=== PATIENT | female | born 1960 | race Two or more races ===

== ENCOUNTER 2017-12-10 20:58 | Emergency (ER) | payer BC ==
--- NOTE | 2017-12-10 21:31 | EDM.PDOC ---
ED HPI GENERAL MEDICAL PROBLEM - General Chief Complaint: Skin Complaint Stated Complaint: REBECCA REATION Time Seen by Provider: 12/10/17 21:26 Source of Information: Reports: Patient History Limitations: Reports: No Limitations - History of Present Illness INITIAL COMMENTS - FREE TEXT/NARRATIVE: HISTORY AND PHYSICAL: History of present illness: Patient is a 57-year-old female here with a rash in her hands 2 months. Reports gotten worse recently and is bothering her and keeping her up at night. She's tried [id number] lotions and creams without any relief. She denies any fevers or chills, nausea, vomiting, chest pain, shortness of breath, headache, abdominal pain. Patient is visiting from [place] and will be returning to [place] next week. She states no one else in her house has a rash. Review of systems: As per history of present illness and below otherwise all systems reviewed and negative. Past medical history: As per history of present illness and as reviewed below otherwise noncontributory. Surgical history: As per history of present illness and as reviewed below otherwise noncontributory. Social history: No reported history of drug or alcohol abuse. Family history: As per history of present illness and as reviewed below otherwise noncontributory. Physical exam: General: Patient sitting comfortably in no acute distress HEENT: Atraumatic, normocephalic, pupils reactive, negative for conjunctival pallor or scleral icterus Lungs: Clear to auscultation, breath sounds equal bilaterally, chest nontender. Heart: S1S2, regular, negative for clicks, rubs, or JVD. Abdomen: Soft, nondistended, nontender. Negative for masses or hepatosplenomegaly. Negative for costovertebral tenderness. Skin: the skin on the hands are dry and cracked and there are small linear bumps in between the fingers. Extremities: Atraumatic, negative for cords or calf pain. Neurovascular unremarkable. Neuro: Awake, alert, oriented. Cranial nerves II through XII unremarkable. Cerebellum unremarkable. Motor and sensory unremarkable throughout. Exam nonfocal. Notes: Diagnostics: [] Therapeutics: [] Impression: Scabies Plan: 1. Use topical cream as directed for scabies, may take benadryl as needed for itching 2. Follow up with primary care provider 3. Return to ED as needed as discussed Definitive disposition and diagnosis as appropriate pending reevaluation and review of above. - Related Data Allergies Allergy/AdvReac Type Severity Reaction Status Date / Time No Known Allergies Allergy Verified 12/10/17 21:01 Home Meds: Home Meds Permethrin 60 gm TP ONETIME #1 cream..g. 12/10/17 [Rx] ED ROS GENERAL - Review of Systems Review Of Systems: ROS reveals no pertinent complaints other than HPI. ED EXAM, SKIN/RASH Exam: See Below (see dictation) Departure - Departure Time of Disposition: 21:29 Disposition: Home, Self-Care 01 Condition: Good Clinical Impression: Scabies - Discharge Information Prescriptions: Permethrin 60 gm TP ONETIME #1 cream..g. Referrals: PCP,None [Primary Care Provider] - Additional Instructions: The following information is given to patients seen in the emergency department who are being discharged to home. This information is to outline your options for follow-up care. We provide all patients seen in our emergency department with a follow-up referral. The need for follow-up, as well as the timing and circumstances, are variable depending upon the specifics of your emergency department visit. If you don't have a primary care physician on staff, we will provide you with a referral. We always advise you to contact your personal physician following an emergency department visit to inform them of the circumstance of the visit and for follow-up with them and/or the need for any referrals to a consulting specialist. The emergency department will also refer you to a specialist when appropriate. This referral assures that you have the opportunity for follow-up care with a specialist. All of these measure are taken in an effort to provide you with optimal care, which includes your follow-up. Under all circumstances we always encourage you to contact your private physician who remains a resource for coordinating your care. When calling for follow-up care, please make the office aware that this follow-up is from your recent emergency room visit. If for any reason you are refused follow-up, please contact the [facility] at and asked to speak to the emergency department charge nurse. [facility] [address] [place] [id number] [facility] [address] [place] [address] 1. Use topical cream as directed for scabies, may take benadryl as needed for itching 2. Follow up with primary care provider 3. Return to ED as needed as discussed
== END 2017-12-10 22:30 | disposition home or self-care (01) ==
LOC: MW.ED 20:58
DX: B86 Scabies (principal)
CPT/HCPCS: 99283

== ENCOUNTER 2019-07-29 00:01 | Emergency (ER) | payer SELFPAY ==
[2019-07-29] MEDS ORDERED: Aspirin 325 MG Tab PO ONE (00:21)
--- NOTE | 2019-07-29 00:33 | EDM.PDOC ---
ED [facility] GENERAL MEDICAL PROBLEM - General Chief Complaint: General Stated Complaint: CHEST PAIN Time Seen by Provider: 07/29/19 00:31 Source of Information: Reports: Patient History Limitations: Reports: No Limitations - History of Present Illness INITIAL COMMENTS - FREE TEXT/NARRATIVE: Patient is a 58-year-old female with past medical history of anxiety and smoking presenting with a chief complaint of chest pressure. Patient states the chest pressure started earlier this evening several hours prior to arrival. Patient she feels substernal without radiation. Patient feels anxious and short of breath. Patient took a Valium and had some relief of her symptoms. Patient denies any diaphoresis, nausea, vomiting. Patient thinks that this may be related to a lot of stress ongoing in her life as her recently had a traumatic brain injury and is in the hospital still. Patient has no recent travels outside of the replaced by [facility] and no sick contacts. Patient denies any fevers, cough, sore throat. Pmhx: Anxiety Pshx: None Family Hx: noncontributory Smoking history? Yes Etoh use? none Drug use? none In addition to that documented in the HPI above, the additional ROS was obtained : Constitutional: Denies fevers or chills Eyes: Denies vision changes ENMT: Denies sore throat CV: Per HPI Resp: Per HPI GI: Denies vomiting or diarrhea : Denies painful urination MSK: Denies recent trauma Skin: Denies new rashes Neuro: Denies new numbness or tingling or weakness Endocrine: Denies unexpected weight loss Heme: Denies bleeding disorders I have reviewed the triage vital signs Const: Patient is teary-eyed and anxious in appearance. Eyes: PERRL, no conjunctival injection HENT: NCAT, Neck supple without meningismus CV: RRR, Warm, well-perfused extremities RESP: CTAB, Unlabored respiratory effort GI: soft, non-tender, non-distended, no masses MSK: No gross deformities appreciated Skin: Warm, dry. No rashes Neuro: Alert, public health officer II-XII grossly intact. Sensation and motor function of extremities grossly intact. Psych: Appropriate mood and affect Assessment and plan: Patient 58-year-old female presenting with chest pain shortness of breath. Patient had normal EKG and normal vital signs. Patient's history and exam performed and concerning for possible ACS versus panic attack. EKG was within normal limits demonstrated no acute ischemic changes. Serial troponins were done and were both within normal limits. Patient is sleeping comfortable and chest pain is improved. Patient has a heart score of 3 and is safe for discharge to home. Patient instructed to follow-up with family care physician for further evaluation. In addition, patient given return precautions to the ER. Patient was given a copy of her chest x-ray which demonstrates nodules in the superior portion of the lungs which will need follow-up imaging. All questions were addressed and answered. Patient agrees with plan. chest Pain Score (Numeric/FACES): 6 - Related Data Allergies Allergy/AdvReac Type Severity Reaction Status Date / Time No Known Allergies Allergy Verified 07/29/19 00:10 Home Meds: Home Meds Dextroamphetamine/Amphetamine [Adderall] 1 tab PO ASDIRECTED PRN 12/11/17 [ History] Hydrocodone/Acetaminophen [Hydrocodon-Acetaminophn 10-325] 30 mg PO DAILY [History] ALPRAZolam [Xanax] 1 tab PO BID 07/29/19 [History] Albuterol Sulfate 5 mg IH ASDIRECTED PRN 07/29/19 [History] Albuterol Sulfate [Albuterol Sulfate Hfa] 1 puff IH ASDIRECTED PRN 07/29/19 [ History] Terbinafine HCl [Lamisil] 250 mg PO DAILY 07/29/19 [History] Past Medical History HEENT History: Reports: None Cardiovascular History: Reports: None Respiratory History: Reports: Asthma Gastrointestinal History: Reports: None Genitourinary History: Reports: None NUT PROCESS HELPER History: Reports: None Musculoskeletal History: Reports: None Neurological History: Reports: None Psychiatric History: Reports: Anxiety, Depression, Panic Attack Endocrine/Metabolic History: Reports: None Insulin Pump Model and Management Instructor: None Hematologic History: Reports: None Immunologic History: Reports: None Oncologic (Cancer) History: Reports: None Dermatologic History: Reports: None - Infectious Disease History Infectious Disease History: Reports: None - Past Surgical History Head Surgeries/Procedures: Reports: None HEENT Surgical History: Reports: Tonsillectomy Female Surgical History: Reports: Hysterectomy, Tubal Ligation Musculoskeletal Surgical History: Reports: Carpal Tunnel, Other (See Below) Other Musculoskeletal Surgeries/Procedures:: Back Surgery Social & Family History - Family History Family Medical History: Noncontributory - Tobacco Use Smoking Status *Q: Current Every Day Smoker Years of Tobacco use: 30 Packs/Tins Daily: 0.5 - Caffeine Use Caffeine Use: Reports: Coffee - Recreational Drug Use Recreational Drug Use: No ED ROS GENERAL - Review of Systems Review Of Systems: See Below ED EXAM, GENERAL - Physical Exam Exam: See Below Course - Vital Signs Last Recorded V/S: Last Vital Signs Temp 35.8 C L 07/29/19 02:05 Pulse 93 07/29/19 02:05 Resp 18 07/29/19 02:05 BP 135/73 07/29/19 02:05 Pulse Ox 99 07/29/19 02:05 - Orders/Labs/Meds Labs: Laboratory Tests 07/29/19 07/29/19 07/29/19 Range/Units 00:36 00:36 02:37 WBC 11.18 H (4.0-11.0) K/uL RBC 4.29 L (4.30-5.90) M/uL Hgb 12.4 (12.0-16.0) g/dL Hct 38.3 (36.0-46.0) % MCV 89.3 (80.0-98.0) fL MCH 28.9 (27.0-32.0) pg MCHC 32.4 (31.0-37.0) g/dL RDW Std Deviation 46.3 (28.0-62.0) fl RDW Coeff of Mami 14 (11.0-15.0) % Plt Count 253 (150-400) K/uL MPV 10.80 (7.40-12.00) fL Neut % (Auto) 45.7 L (48.0-80.0) % Lymph % (Auto) 44.7 H (16.0-40.0) % [place] % (Auto) 7.9 (0.0-15.0) % Eos % (Auto) 1.5 (0.0-7.0) % Baso % (Auto) 0.2 (0.0-1.5) % Neut # (Auto) 5.1 (1.4-5.7) K/uL Lymph # (Auto) 5.0 H (0.6-2.4) K/uL [place] # (Auto) 0.9 H (0.0-0.8) K/uL Eos # (Auto) 0.2 (0.0-0.7) K/uL Baso # (Auto) 0.0 (0.0-0.1) K/uL Sodium 142 (136-145) mmol/L Potassium 4.1 (3.5-5.1) mmol/L Chloride 105 (98-107) mmol/L Carbon Dioxide 28.6 (21.0-32.0) mmol/L BUN 18 (7.0-18.0) mg/dL Creatinine 0.9 (0.6-1.0) mg/dL Est Cr Clr Drug Dosing 50.79 mL/min Estimated GFR (MDRD) > 60.0 ml/min Glucose 115 H (74-106) mg/dL Calcium 9.1 (8.5-10.1) mg/dL Total Bilirubin 0.1 L (0.2-1.0) mg/dL AST 8 L (15-37) IU/L ALT 19 (14-63) IU/L Alkaline Phosphatase 151 H (46-116) U/L Troponin I < 0.050 < 0.050 (0.000-0.056) ng/mL Total Protein 7.4 (6.4-8.2) g/dL Albumin 3.7 (3.4-5.0) g/dL Globulin 3.7 (2.6-4.0) g/dL Albumin/Globulin Ratio 1.0 (0.9-1.6) Meds: Medications Discontinued Medications Generic Name Dose Route Start Last Admin Trade Name Freq PRN Reason Stop Dose Admin Aspirin 325 mg 07/29/19 00:21 07/29/19 00:31 Aspirin PO 07/29/19 00:22 325 mg ONETIME ONE Administration Departure - Departure Time of Disposition: 03:09 Disposition: Home, Self-Care 01 Clinical Impression: Chest pain - Discharge Information Instructions: Nonspecific Chest Pain, Adult Forms: ED Department Discharge Sepsis Event Note - Evaluation Sepsis Screening Result: No Definite Risk - Focused Exam Vital Signs: Vital Signs Temp Pulse Resp BP Pulse Ox 07/29/19 02:05 35.8 C L 93 18 135/73 99 07/29/19 01:22 35.9 C L 78 16 137/72 98 07/29/19 00:30 83 18 131/72 98 07/29/19 00:05 35.8 C L 90 18 184/81 H 98 Date Exam was Performed: 07/29/19 Time Exam was Performed: 03:07
--- NOTE | 2019-07-29 00:56 | CR ---
INDICATION: Chest pressure, anxiety TECHNIQUE: Chest radiograph 1 view COMPARISON: None FINDINGS: Mediastinum: The mediastinum is normal in appearance. The heart silhouette is normal in size and morphology. Lung: Several small nodules are present in the apices bilaterally and in the medial right lung base measuring up to 3 mm. No sign of pleural effusion seen. No pneumothorax is identified. Bone and Soft tissue: Unremarkable for age. IMPRESSION: 1. Several small nodules are present in the apices bilaterally and in the medial right lung base measuring up to 3 mm. Lesion most likely due to calcified granulomas given their density for size. Comparison with any prior outside imaging is recommended. If these cannot be obtained, follow up chest radiograph in 3 months is warranted to document stability. Dictated by Cecilio Gonzalez MD @ 07/29/2019 12:55:36 AM Dictated by: Cecilio Gonzalez MD @ 07/29/2019 00:55:39 (Electronically Signed)
[2019-07-29 01:06] LABS: BLOOD UREA NITROGEN,BUN 18 mg/dL (7.0-18.0); CARBON DIOXIDE,CO2 28.6 mmol/L (21.0-32.0); CHLORIDE,CL 105 mmol/L (98-107); GLUCOSE RANDOM 115 mg/dL (74-106); POTASSIUM,K 4.1 mmol/L (3.5-5.1); SODIUM,NA 142 mmol/L (136-145)
== END 2019-07-29 03:17 | disposition home or self-care (01) ==
LOC: MW.ED 00:01
DX: R07.89 Other chest pain (principal); F41.9 Anxiety disorder, unspecified; F32.9 Major depressive disorder, single episode, unspecified; J45.909 Unspecified asthma, uncomplicated; F17.210 Nicotine dependence, cigarettes, uncomplicated
CPT/HCPCS: 36415; 71045; 71045-26; 80053; 84484; 85025; 93005; 99285-25; A9270-GY